=== PATIENT | male | born 1990 | race Caucasian/White ===

== ENCOUNTER 2017-04-03 21:17 | Emergency (ER) | payer OTHER ==
[2017-04-03 21:25] VITALS: TEMP 98.6
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
[2017-04-03] MEDS ORDERED: PROPOFOL 200 MG/20 ML VIAL ONE (21:43)
[2017-04-03] MEDS ORDERED: PROPOFOL 200 MG/20 ML VIAL IVP ONE (22:00)
[2017-04-03 22:17] VITALS: O2SAT 99
[2017-04-03 22:21] VITALS: BP 130/73; RESP 16
[2017-04-03] MEDS ORDERED: HYDROCOD/APAP 5/325 PREPACK#6 BTL TAKEHOME ONE (22:32)
[2017-04-03 22:55] VITALS: PULSE 82
== END 2017-04-03 22:58 | disposition home or self-care (01) ==
LOC: EDUNIT#
PROC: 0SS9XZZ Reposition Right Hip Joint, External Approach (ICD-10-PCS; principal; 2017-04-03)
DX: S73.004A Unspecified dislocation of right hip, initial encounter (principal); F17.200 Nicotine dependence, unspecified, uncomplicated; Z85.6 Personal history of leukemia; V18.4XXA Pedal cycle driver injured in noncollision transport accident in traffic accident, initial encounter; Y99.8 Other external cause status; Y93.55 Activity, bike riding
CPT/HCPCS: J2704

== ENCOUNTER → 2017-04-17 | Outpatient (CLI) | payer BC | LOC: CIMAGING 10:26 | PROVIDERS: ATTEND Physician Assistant | DX: M25.551 Pain in right hip (principal) | CPT/HCPCS: 73700-PO ==